=== PATIENT | female | born 1985 | race African-American/Black ===

== ENCOUNTER 2016-07-29 16:52 | Emergency (ER) | payer OTHER ==
[~2016-07-29] VITALS: Ht 154.9 cm; Wt 100.0 kg
[~2016-07-29 16:52] MED LIST: BACT800T5 PO; FAMO1TAB37 PO; MEDR4PAK PO
[2016-07-29 16:55] VITALS: BP 188/107; PULSE 66; RESP 16; TEMP 97.6; O2SAT 100
[2016-07-29 20:38] VITALS: BP 163/92; PULSE 81; RESP 18; O2SAT 100
[2016-07-29 21:04] LABS: BACTERIA, URINE OCC /hpf; BLOOD, URINE NEG (NEG); GLUCOSE,URINE NEG (NEG); KETONE, URINE NEG (NEG); MUCUS URINE FEW /lpf (OCC); NITRITE,URINE NEG (NEG); PH, URINE 7.5 (5.0-8.5); SQUAMOUS EPITHELIAL CELL URINE 13 /hpf (0-5); URINE COLOR YELLOW (YELLW/STRAW)
[2016-07-29 21:06] LABS: COMMENT (UR) CULT NOT INDICATED; CULTURE IF INDICATED CULT NOT INDICATED
[2016-07-29] MEDS ORDERED: DOXY100C PO (21:11)
[2016-07-29] MEDS ORDERED: METR-1 PO (21:11)
[2016-07-29] MEDS ORDERED: ULTR50TA5 PO (21:11)
[2016-07-29] MEDS ORDERED: IBUP800T23 PO (21:11)
--- NOTE | 2016-07-29 21:11 | PD ---
HPI . Pelvic pain Chief Complaint: Abdominal Pain Time Seen by Provider: 20:37 Travel History International Travel<30 days: No Contact w/Intl Traveler<30days: No Traveled to known affect area: No History of Present Illness HPI Patient presents with the acute onset of pelvic pain at about 3:30 PM today. She states that it started after she ate a hot dog. She then had a couple loose bowel movements but her pain did not improve. She does complain of a white vaginal discharge. She denies any dyspareunia or bleeding. She denies any urinary tract symptoms. She denies any fever. She states that the pain is similar to previous dysmenorrhea. She states her last normal menstrual period was June 17. She states it is not all unusual for her to have irregular periods. [id number]: Pelvic QUALITY: Cramping DURATION: 4 hours TIMING: Continuous MODIFYING FACTORS: No exacerbating or relieving factors PFSH Past Medical History High Cholesterol: Yes Diminished Hearing: No Hypertension: Yes (DURING LAST ) Respiratory: Yes (FREQUENT COLD) Immunizations Current: Yes Influenza Vaccination: No ?: Not LMP: 06/17/16 : 1 Para: 1 Miscarriage: 0 : 0 Past Surgical History Abdominal Surgery: Yes (C- SECTION) Section: Yes (X1) Gynecologic Surgery: Yes (C- SECTION) Social History Alcohol Use: Yes (OCC) Tobacco Use: Yes (1 PPD) Substance Use: No Allergies-Medications (Allergen,Severity, Reaction): Coded Allergies: No Known Allergies (Verified , 07/29/16) Reported Meds & Prescriptions Reported Meds & Active Scripts Active Ibuprofen 800 Mg Tab 800 Mg PO Q8H PRN Ultram (Tramadol HCl) 50 Mg Tab 50 Mg PO Q4H PRN Flagyl (Metronidazole) 500 Mg Tab 500 Mg PO TWICE A DAY 7 Days Doxycycline Hyclate 100 Mg Cap 100 Mg PO BID Bactrim DS (Sulfamethoxazole-Trimethoprim) 800-160 Mg Tab 1 Tab PO BID Pepcid (Famotidine) 20 Mg Tab 20 Mg PO BID 10 Days Medrol Dosepak (Methylprednisolone) 4 Mg Dspk 4 Mg PO DIRECTED Per Pharmacist direction Review of Systems Except as stated in HPI: all other systems reviewed are Neg General / Constitutional: No: Fever, Chills Gastrointestinal: Positive: Diarrhea, Abdominal Pain, No: Nausea, Vomiting Genitourinary: Positive: Pelvic Pain, Discharge, No: Urgency, Frequency, Dysuria, Dyspareunia Physical Exam Narrative GENERAL: Awake and alert and in no acute distress. SKIN: Warm and dry. HEAD: Atraumatic. Normocephalic. EYES: Pupils equal and round. ENT: No nasal bleeding or discharge. Mucous membranes pink and moist. NECK: Trachea midline. Neck is supple. CARDIOVASCULAR: Regular rate and rhythm. Heart sounds are normal. RESPIRATORY: No accessory muscle use. Lungs are clear with good air movement throughout. GASTROINTESTINAL: Abdomen soft. Suprapubic tenderness. Nondistended. : Positive cervical motion tenderness and bilateral adnexal tenderness. MUSCULOSKELETAL: No obvious deformities. No edema. NEUROLOGICAL: Awake and alert. No obvious cranial nerve deficits. Motor grossly within normal limits. Normal speech. PSYCHIATRIC: Appropriate mood and affect; insight and judgment normal. Data Data Last Documented VS Vital Signs Date Time Temp Pulse Resp B/P Pulse Ox O2 Delivery O2 Flow Rate FiO2 07/29/16 20:38 81 18 163/92 100 Room Air 07/29/16 16:55 97.6 Orders Gc And Chlamydia Pcr (07/29/16 20:39) Wet Prep Profile (07/29/16 20:39) Urinalysis - C+S If Indicated (07/29/16 20:39) Ed Urine Pregnancytest Poc (07/29/16 20:39) Ceftriaxone Inj (Rocephin Inj) (07/29/16 21:15) Lidocaine 1% Inj (50 Ml) (Xylocaine 1% I (07/29/16 21:15) Ketorolac Inj (Toradol Inj) (07/29/16 21:15) Labs Laboratory Tests Test 07/29/16 07/29/16 20:30 21:05 Urine Color YELLOW Urine Turbidity HAZY Urine pH 7.5 Urine Specific [place] 1.026 Urine Protein TRACE mg/dL Urine Glucose (UA) NEG mg/dL Urine Ketones NEG mg/dL Urine Occult Blood NEG Urine Nitrite NEG Urine Bilirubin NEG Urine Urobilinogen LESS THAN 2.0 MG/DL Urine Leukocyte Esterase NEG Urine RBC 13 /hpf Urine WBC 3 /hpf Urine Squamous Epithelial 13 /hpf Cells Urine Amorphous Sediment RARE Urine Bacteria OCC /hpf Urine Mucus FEW /lpf Microscopic Urinalysis Comment CULT NOT INDICATED Clue Cells (Wet Prep) NONE SEEN Vaginal Trichomonas (Wet Prep) NONE SEEN Vaginal Yeast (Wet Prep) NONE SEEN MDM Medical Decision Making Medical Screen Exam Complete: Yes Emergency Medical Condition: Yes Differential Diagnosis Differential diagnosis of pelvic pain includes but is not limited to UTI, PID, ectopic , spontaneous AB, constipation, viral illness Narrative Course Patient presents complaining with pelvic pain that incidentally started after eating a hotdog for lunch. Her exam is consistent with PID. UA looks negative for infection Wet prep is negative HCG is negative She will be treated for PID. Diagnosis Primary Impression: PID (acute pelvic inflammatory disease) Patient Instructions: General Instructions, Pelvic Inflammatory Disease (DC) Med/Other Pt SpecificInfo: Prescription(s) given Scripts Ibuprofen 800 Mg [id number] Mg PO Q8H PRN (pain) #30 TAB Ref 0 Prov:Danelle Jara MD 07/29/16 Tramadol (Ultram)50 Mg Tab50 Mg PO Q4H PRN (PAIN) #12 TAB Ref 0 Prov:Danelle Jara MD 07/29/16 Metronidazole (Flagyl)500 Mg [id number] Mg PO twice a day 7 Days Ref 0 Prov:Danelle Jara MD 07/29/16 Doxycycline Hyclate 100 Mg Sle159 Mg PO BID #20 CAP Ref 0 Prov:Danelle Jara MD 07/29/16 Disposition: 01 DISCHARGE HOME Condition: Stable Danelle Jara MD Jul 29, 2016 21:11
[2016-07-29] MEDS ORDERED: LIDOCAINE HCL 1% 50 ML VIAL XX ONE (21:15)
[2016-07-29] MEDS ORDERED: KETOROLAC TROMETHAMINE 60 MG/2 ML (IM) VIAL IM ONE (21:15)
[2016-07-29] MEDS ORDERED: cefTRIAXone 250 MG VIAL IM ONE (21:15)
[2016-07-29 22:24] VITALS: BP 175/93
[2016-07-29 22:25] VITALS: RESP 20
[2016-07-29 23:58] LABS: CHLAMYDIA PCR NOT DETECTED (NOT DETECT); NEISSERIA PCR NOT DETECTED (NOT DETECT)
== END 2016-07-29 22:55 | disposition home or self-care (01) ==
LOC: NEPC 16:52
DX: N73.9 Female pelvic inflammatory disease, unspecified (principal); R19.7 Diarrhea, unspecified; E78.00 Pure hypercholesterolemia, unspecified; F17.200 Nicotine dependence, unspecified, uncomplicated
CPT/HCPCS: 81001; 84703; 87210; 87491; 87591; 96372; 99284; J0696; J1885

== ENCOUNTER 2017-07-30 19:16 | Emergency (ER) | payer OTHER ==
[~2017-07-30] VITALS: Ht 154.9 cm; Wt 88.0 kg
[~2017-07-30 19:16] MED LIST changes: +DOXY100C PO; +IBUP1TAB7 PO; +METR-1 PO; +TRAM50 PO
[2017-07-30 19:45] VITALS: BP 132/58; PULSE 100; RESP 16; TEMP 99.5; O2SAT 100
== END 2017-07-30 22:31 | disposition left against medical advice (07) ==
LOC: NED 19:16
DX: R55 Syncope and collapse (principal)
CPT/HCPCS: 99281

== ENCOUNTER 2017-07-31 11:49 | Emergency (ER) | payer OTHER ==
[2017-07-31 11:52] VITALS: BP 146/81; PULSE 88; RESP 20; TEMP 97.9; O2SAT 100
--- NOTE | 2017-07-31 11:57 | PD ---
HPI Chief Complaint: Syncope/Near-Syncope Time Seen by Provider: 11:56 Travel History International Travel<30 days: No Contact w/Intl Traveler<30days: No Traveled to known affect area: No History of Present Illness HPI 32-year-old female came to the emergency room with history of syncopal episode yesterday afternoon. Patient says that she was sitting in a room with 3 other people and there was no air conditioner. Patient was wearing warm clothes and had not eaten much the entire day. She started getting very lightheaded and then passed out. When she fell she hit the forehead on the floor. Patient went to the urgent care after that but was asked to come to the emergency room. Patient had come here but she waited in the waiting room for 3 hours and then left. Today she says she has been feeling tired and her head hurts. Also when she fell she injured her left knee a little bit and that is hurting although she is able to ambulate. Vital signs are stable. No history of vomiting. No history of any more syncopal episodes. Vital signs are relatively stable. [facility] Past Medical History Narrative Medical List of her past medical, surgical, social and family history reviewed from the nursing note. High Cholesterol: Yes Diminished Hearing: No Hypertension: Yes (DURING LAST ) Respiratory: Yes (FREQUENT COLD) Immunizations Current: Yes ?: Unknown LMP: JUN 16, 2017 : 1 Para: 1 Miscarriage: 0 : 0 Past Surgical History Abdominal Surgery: Yes (C- SECTION) Section: Yes (X1) Gynecologic Surgery: Yes (C- SECTION) Social History Alcohol Use: Yes (OCC) Tobacco Use: Yes (1 PPD) Substance Use: No Allergies-Medications (Allergen,Severity, Reaction): Coded Allergies: No Known Allergies (Verified Adverse Reaction, Unknown, 07/30/17) Comments No known drug allergies. Reported Meds & Prescriptions Reported Meds & Active Scripts Active Ibuprofen 800 Mg Tab 800 Mg PO Q8H PRN Ultram (Tramadol HCl) 50 Mg Tab 50 Mg PO Q4H PRN Flagyl (Metronidazole) 500 Mg Tab 500 Mg PO TWICE A DAY 7 Days Doxycycline Hyclate 100 Mg Cap 100 Mg PO BID Bactrim DS (Sulfamethoxazole-Trimethoprim) 800-160 Mg Tab 1 Tab PO BID Pepcid (Famotidine) 20 Mg Tab 20 Mg PO BID 10 Days Medrol Dosepak (Methylprednisolone) 4 Mg Dspk 4 Mg PO DIRECTED Per Pharmacist direction Narrative Medication List of her home medications reviewed from the nursing note. Review of Systems Except as stated in HPI: all other systems reviewed are Neg Neurologic: Positive: Syncope Physical Exam Narrative GENERAL: Awake, alert, mild distress SKIN: Focused skin assessment warm/dry. Left knee abrasion HEAD: Atraumatic. Normocephalic. EYES: Pupils equal and round. No scleral icterus. No injection or drainage. ENT: No nasal bleeding or discharge. Mucous membranes pink and moist. Contusion on her glabellar surface NECK: Trachea midline. No JVD. CARDIOVASCULAR: Regular rate and rhythm. No murmur appreciated. RESPIRATORY: No accessory muscle use. Clear to auscultation. Breath sounds equal bilaterally. GASTROINTESTINAL: Abdomen soft, non-tender, nondistended. Hepatic and splenic margins not palpable. MUSCULOSKELETAL: No obvious deformities. No clubbing. No cyanosis. No edema. NEUROLOGICAL: Awake and alert. No obvious cranial nerve deficits. Motor grossly within normal limits. Normal speech. PSYCHIATRIC: Appropriate mood and affect; insight and judgment normal. Data Data Last Documented VS Orders Orders Complete Blood Count With Diff (07/31/17 12:01) Basic Metabolic Panel (Bmp) (07/31/17 12:01) Ed Urine Pregnancytest Poc (07/31/17 12:01) Urinalysis - C+S If Indicated (07/31/17 12:01) Sodium Chlor 0.9% 1000 Ml Inj (Ns 1000 M (07/31/17 12:15) Orthostatic Vital Signs (07/31/17 12:02) Ct Brain W/O Iv Contrast(Rout) (07/31/17 ) Ed Discharge Order (07/31/17 13:23) Labs Laboratory Tests Test 07/31/17 12:10 07/31/17 12:15 Urine Color YELLOW Urine Turbidity HAZY Urine pH 5.5 Urine Specific [place] 1.025 Urine Protein TRACE mg/dL Urine Glucose (UA) NEG mg/dL Urine Ketones NEG mg/dL Urine Occult Blood TRACE Urine Nitrite NEG Urine Bilirubin NEG Urine Urobilinogen LESS THAN 2.0 MG/DL Urine Leukocyte Esterase NEG Urine RBC 1 /hpf Urine WBC 4 /hpf Urine Squamous Epithelial Cells 3 /hpf Urine Renal Epithelial Cells <1 /hpf Urine Bacteria OCC /hpf Urine Mucus FEW /lpf Microscopic Urinalysis Comment CULT NOT INDICATED White Blood Count 8.2 TH/MM3 Red Blood Count 4.02 MIL/MM3 Hemoglobin 11.2 GM/DL Hematocrit 33.3 % Mean Corpuscular Volume 82.9 FL Mean Corpuscular Hemoglobin 27.8 PG Mean Corpuscular Hemoglobin Concent 33.6 % Red Cell Distribution Width 17.2 % Platelet Count 219 TH/MM3 Mean Platelet Volume 9.3 FL Neutrophils (%) (Auto) 64.7 % Lymphocytes (%) (Auto) 25.9 % Monocytes (%) (Auto) 8.5 % Eosinophils (%) (Auto) 0.3 % Basophils (%) (Auto) 0.6 % Neutrophils # (Auto) 5.3 TH/MM3 Lymphocytes # (Auto) 2.1 TH/MM3 Monocytes # (Auto) 0.7 TH/MM3 Eosinophils # (Auto) 0.0 TH/MM3 Basophils # (Auto) 0.1 TH/MM3 CBC Comment DIFF FINAL Differential Comment Blood Urea Nitrogen 11 MG/DL Creatinine 0.87 MG/DL Random Glucose 91 MG/DL Calcium Level 9.1 MG/DL Sodium Level 138 MEQ/L Potassium Level 3.8 MEQ/L Chloride Level 104 MEQ/L Carbon Dioxide Level 26.9 MEQ/L Anion Gap 7 MEQ/L Estimat Glomerular Filtration Rate 93 ML/MIN [facility] Medical Decision Making Medical Screen Exam Complete: Yes Emergency Medical Condition: Yes Medical Record Reviewed: Yes Differential Diagnosis Vasovagal syncope versus orthostatic syncope Narrative Course 12:53 PM patient is slightly positive on the orthostatic vital signs. She is getting IV fluid bolus. is negative. CBC and UA are back and within acceptable limits. CT scan of the head is pending. CT scan is negative patient will be discharged home. 1:[address] scan is negative. Patient will be discharged home. Procedures EKG Prior to Arrival: No Diagnosis Primary Impression: Syncope Qualified Codes: R55 - Syncope and collapse Additional Impression: Facial contusion Qualified Codes: S00.83XA - Contusion of other part of head, initial encounter Referrals: Primary Care Physician 3 days Additional Instructions: Drink lots of fluid and eat proper meals at proper times. Follow-up with your primary care. Return to ER if condition worsens or any other new concerns. Med/Other Pt SpecificInfo: No Change to Meds Disposition: 01 DISCHARGE HOME Condition: Stable Rona,Shravanti R. MD Jul 31, 2017 11:57
[2017-07-31 12:09] VITALS: BP_SYST 129; BP_SYST 134; BP_SYST 141; BP_DIAS 60; BP_DIAS 85; BP_DIAS 88; RESP 16; RESP 18; RESP 22
[2017-07-31 12:13] VITALS: BP 129/88; PULSE 99; RESP 22; O2SAT 100
[2017-07-31] MEDS ORDERED: SODIUM CHLOR 0.9% 1000 ML INJ 1,000 ML IV ONE (12:15)
[2017-07-31 12:33] LABS: AUTOMATED NEUTROPHIL # 5.3 TH/MM3 (1.8-7.7); BASOPHIL # 0.1 TH/MM3 (0-0.2); BASOPHIL % 0.6 % (0.0-2.0); EOSINOPHIL % 0.3 % (0.0-4.0); HEMATOCRIT 33.3 % (35.0-46.0); HEMOGLOBIN 11.2 GM/DL (11.6-15.3); LYMPH % 25.9 % (9.0-44.0); LYMPHOCYTE # 2.1 TH/MM3 (1.0-4.8); MEAN CELL VOLUME 82.9 FL (80.0-100.0); MEAN CORPUSCULAR HEMOGLOBIN 27.8 PG (27.0-34.0); MEAN CORPUSCULAR HGB CONC 33.6 % (32.0-36.0); MEAN PLATELET VOLUME 9.3 FL (7.0-11.0); MONO % 8.5 % (0.0-8.0); MONOCYTE # 0.7 TH/MM3 (0-0.9); NEUT % 64.7 % (16.0-70.0); PLATELET COUNT 219 TH/MM3 (150-450); RED BLOOD COUNT 4.02 MIL/MM3 (4.00-5.30); RED CELL DISTRIBUTION WIDTH 17.2 % (11.6-17.2); WHITE BLOOD COUNT 8.2 TH/MM3 (4.0-11.0)
[2017-07-31 12:41] LABS: BACTERIA, URINE OCC /hpf; BILIRUBIN, URINE NEG (NEG); BLOOD, URINE TRACE (NEG); GLUCOSE,URINE NEG (NEG); KETONE, URINE NEG (NEG); MUCUS URINE FEW /lpf (OCC); NITRITE,URINE NEG (NEG); PH, URINE 5.5 (5.0-8.5); RENAL EPITHELIAL CELLS <1 /hpf; SQUAMOUS EPITHELIAL CELL URINE 3 /hpf (0-5); URINE COLOR YELLOW (YELLW/STRAW); URINE LEUKOCYTE ESTERASE NEG (NEG)
[2017-07-31 12:55] LABS: BICARBONATE 26.9 MEQ/L (21.0-32.0); CALCIUM 9.1 MG/DL (8.5-10.1); CREATININE 0.87 MG/DL (0.50-1.00)
--- NOTE | 2017-07-31 13:06 | RADRPT ---
EXAM DATE/TIME: 07/31/2017 12:59 [place] COMPARISON: No previous studies available for comparison. INDICATIONS : Syncopal episode yesterday. RADIATION DOSE: 35.34 CTDIvol (mGy) MEDICAL HISTORY : Hypertension. SURGICAL HISTORY : None. ENCOUNTER: Initial ACUITY: 1 day PAIN SCALE: 0/10 LOCATION: cranial TECHNIQUE: Multiple contiguous axial images were obtained of the head. Using automated exposure control and adj ustment of the mA and/or kV according to patient size, radiation dose was kept as low as reasonably a chievable to obtain optimal diagnostic quality images. DICOM format image data is available electro nically for review and comparison. FINDINGS: CEREBRUM: The ventricles are normal for age. No evidence of midline shift, mass lesion, hemorrhage or acute in farction. No extra-axial fluid collections are seen. POSTERIOR FOSSA: The cerebellum and brainstem are intact. The 4th ventricle is midline. The cerebellopontine angle i s unremarkable. EXTRACRANIAL: The visualized portion of the orbits is intact. SKULL: The calvaria is intact. No evidence of skull fracture. CONCLUSION: Normal examination. Hannah Marti MD on July 31, 2017 at 13:03 Board Certified Radiologist. This report was verified electronically.
== END 2017-07-31 13:47 | disposition home or self-care (01) ==
LOC: NEPC 11:49
DX: R55 Syncope and collapse (principal); S00.83XA Contusion of other part of head, initial encounter; W19.XXXA Unspecified fall, initial encounter; E78.00 Pure hypercholesterolemia, unspecified; F17.200 Nicotine dependence, unspecified, uncomplicated
CPT/HCPCS: 70450; 80048; 81001; 84703; 85025; 99283; J7030

== ENCOUNTER 2017-09-18 12:08 | Emergency (ER) | payer OTHER ==
[~2017-09-18] VITALS: Ht 154.9 cm; Wt 85.0 kg
[2017-09-18 12:23] VITALS: BP 189/104; PULSE 81; RESP 18; TEMP 97.7; O2SAT 99
--- NOTE | 2017-09-18 12:46 | PD ---
HPI Chief Complaint: Cold / Flu Symptoms Time Seen by Provider: 12:29 Travel History International Travel<30 days: No Contact w/Intl Traveler<30days: No Traveled to known affect area: No History of Present Illness HPI 32-year-old female arrives with complaint of body aches and pains, hot flashes, nausea 2 episodes of vomiting, occasional cough, dizzy spells, menstrual cramps for 2 days. She took Aleve at home which was helpful briefly. She denies sick contacts. Severity moderate. PFSH Past Medical History Anxiety: Yes High Cholesterol: Yes Diminished Hearing: No Hypertension: Yes (DURING LAST ) Respiratory: Yes (FREQUENT COLD) Immunizations Current: Yes ?: Unknown : 1 Para: 1 Miscarriage: 0 : 0 Past Surgical History Abdominal Surgery: Yes (C- SECTION) Section: Yes (X1) Gynecologic Surgery: Yes (C- SECTION) Social History Alcohol Use: Yes (OCC) Tobacco Use: Yes (1 PPD) Substance Use: No Allergies-Medications (Allergen,Severity, Reaction): Coded Allergies: No Known Allergies (Verified Adverse Reaction, Unknown, 07/30/17) Reported Meds & Prescriptions Reported Meds & Active Scripts Active Proair Hfa 8.5 GM Inh (Albuterol Sulfate) 90 Mcg/Act Aer 2 Puff INH Q6H PRN 108 mcg/actuation Medrol Dosepak (Methylprednisolone) 4 Mg Dspk 4 Mg PO DIRECTED Per Pharmacist direction Ibuprofen 800 Mg Tab 800 Mg PO Q8H PRN Ultram (Tramadol HCl) 50 Mg Tab 50 Mg PO Q4H PRN Flagyl (Metronidazole) 500 Mg Tab 500 Mg PO TWICE A DAY 7 Days Doxycycline Hyclate 100 Mg Cap 100 Mg PO BID Bactrim DS (Sulfamethoxazole-Trimethoprim) 800-160 Mg Tab 1 Tab PO BID Pepcid (Famotidine) 20 Mg Tab 20 Mg PO BID 10 Days Review of Systems Except as stated in HPI: all other systems reviewed are Neg General / Constitutional: Positive: Fever Physical Exam Narrative GENERAL: Well-nourished well-developed 32-year-old female no acute distress Vital Signs Date Time Temp Pulse Resp B/P (MAP) Pulse Ox O2 Delivery O2 Flow Rate FiO2 09/18/17 12:23 97.7 81 18 189/104 (132) 99 SKIN: Warm and dry. HEAD: Atraumatic. Normocephalic. EYES: Pupils equal and round. No scleral icterus. No injection or drainage. ENT: No nasal bleeding or discharge. Mucous membranes pink and moist. Posterior oropharynx is widely patent. No exudate. No asymmetry. No erythema. NECK: Trachea midline. No JVD. CARDIOVASCULAR: Regular rate and rhythm. RESPIRATORY: Trace wheezing. No dyspnea. GASTROINTESTINAL: Abdomen soft, non-tender, nondistended. Hepatic and splenic margins not palpable. MUSCULOSKELETAL: Extremities without clubbing, cyanosis, or edema. No obvious deformities. NEUROLOGICAL: Awake and alert. No obvious cranial nerve deficits. Motor grossly within normal limits. Five out of 5 muscle strength in the arms and legs. Normal speech. PSYCHIATRIC: Appropriate mood and affect; insight and judgment normal. Data Data Last Documented VS Vital Signs Date Time Temp Pulse Resp B/P (MAP) Pulse Ox O2 Delivery O2 Flow Rate FiO2 09/18/17 12:23 97.7 81 18 189/104 (132) 99 Orders Orders Influenzae A/B Antigen (09/18/17 12:46) Albuterol Hfa Inh (Proair Hfa Inh) (09/18/17 13:00) Ed Discharge Order (09/18/17 14:21) [facility] Medical Decision Making Medical Screen Exam Complete: Yes Emergency Medical Condition: Yes Medical Record Reviewed: Yes Differential Diagnosis Influenza, bronchitis, atypical pneumonia, nonspecific viral URI Narrative Course Patient reports feeling better after use of an inhaler here. Scripts as below. Workup provided for tomorrow. Diagnosis Primary Impression: URI (upper respiratory infection) Qualified Codes: J06.9 - Acute upper respiratory infection, unspecified Med/Other Pt SpecificInfo: Prescription(s) given Scripts Albuterol 8.5 GM Inh (Proair Hfa 8.5 GM Inh) 90 Mcg/Act Aer 2 PUFF INH Q6H Y for SHORTNESS OF BREATH, #1 INHALER 0 Refills 108 mcg/actuation Prov: Richie Shaw MD 09/18/17 Methylprednisolone Dosepak (Medrol Dosepak) 4 Mg Dspk 4 MG PO DIRECTED, #1 DSPK 0 Refills Per Pharmacist direction Prov: Richie Shaw MD 09/18/17 Disposition: 01 DISCHARGE HOME Condition: Stable Richie Shaw MD September 18, 2017 12:46
[2017-09-18] MEDS ORDERED: ALBUTEROL SULFATE 90 MCG/ACT HFA 8 GM INHALER INH ONE (13:00)
[2017-09-18] MEDS ORDERED: MEDR4PAK PO (14:02)
[2017-09-18] MEDS ORDERED: ALBUAER3 INH (14:02)
== END 2017-09-18 14:33 | disposition home or self-care (01) ==
LOC: NEPD 12:08
DX: J06.9 Acute upper respiratory infection, unspecified (principal); N94.6 Dysmenorrhea, unspecified; F41.9 Anxiety disorder, unspecified; E78.00 Pure hypercholesterolemia, unspecified; F17.200 Nicotine dependence, unspecified, uncomplicated
CPT/HCPCS: 87804; 99283